=== PATIENT | male | born 1950 | race Caucasian/White ===

== ENCOUNTER 2019-07-07 00:56 | Observation (INO) | payer MEDICARE, OTHER, SELFPAY ==
[2019-07-07] VITALS (9 sets, daily range): BP systolic 116–140; BP diastolic 70–82; PULSE 70–102; RESP 13–17; TEMP 36.8–37.3; O2SAT 94–98; BMI 24.7
--- NOTE | ~2019-07-07 | CT_ITS ---
EXAMINATION: CT brain wo con DATE: 07/07/2019 01:29 INDICATION: Seizure. TECHNIQUE: Computed tomography (CT) of the head was performed without intravenous contrast. The mA wa s adjusted according to patient size. Iterative reconstruction technique was employed. The dose-lengt h product was 605.33 mGy-cm. COMPARISON: Head CT 01/15/2016 FINDINGS: There is no intracranial hemorrhage, acute infarction, or abnormal intracranial mass lesion . There is no intracranial hemorrhage, acute infarction, or abnormal intracranial mass lesion. The v entricles are normal in size. The paranasal sinuses are clear. There is a small left mastoid effusion . The orbits are normal. IMPRESSION: 1. Normal brain. Reviewed, dictated and finalized at location A. IMPRESSION: 1. Normal brain.
--- NOTE | ~2019-07-07 | XR_ITS ---
EXAMINATION: XR chest 1V portable DATE: 07/07/2019 01:33 INDICATION: Seizure. TECHNIQUE: A single frontal view of the chest was obtained. COMPARISON: Chest single view 01/15/2016, CT abdomen 04/18/2016 FINDINGS: There is a staple line in right middle lobe. There is mild atelectasis in right lower lung zone. No pleural effusion or pneumothorax. The heart size is normal. Surgical clips in the right uppe r quadrant are likely from cholecystectomy. IMPRESSION: 1. Mild atelectasis in right lower lung zone. Reviewed, dictated and finalized at location A.
--- NOTE | 2019-07-07 01:13 | ECG_ITS ---
Measurements Intervals [place] Rate: 102 P: 24 PA: 193 QRS: -35 QRSD: 108 T: 42 QT: 368 QTc: 480 Interpretive Statements SINUS TACHYCARDIA POSSIBLE LEFT ATRIAL ENLARGEMENT LEFT AXIS DEVIATION POSSIBLE LEFT VENTRICULAR HYPERTROPHY BORDERLINE ECG Electronically Signed On 07-07-2019 7:12:57 CDT by Jarad Goins D.O.
[2019-07-07 01:44] LABS: Glucose Point of Care 209 (65-105)
[2019-07-07 01:53] LABS: Basophils Percent Auto 0.3 % (0.2-1.2); Eosinophils Percent Auto 0.1 % (0-4.4); Hematocrit 42.8 % (42.0-52.0); Hemoglobin 14.8 g/dL (14.0-18.0); Immature Granulocyte Absolute 0.02 K/mm3 (0.00-0.031); Immature Granulocyte Percent A 0.2 % (0-0.5); Lymphocytes Absolute Auto 3.71 K/mm3 (0.9-3.2); Mean Corpuscular HGB Conc 34.6 g/dl (32-36); Mean Corpuscular Hemoglobin 33.8 pg (26-34); Mean Corpuscular Volume 97.7 fl (80-100); Monocytes Absolute Auto 0.6 K/mm3 (0.1-0.6); Monocytes Percent Auto 6.4 % (2.6-8.5); Neutrophils Absolute Auto 4.7 K/mm3 (1.3-6.7); Platelet Count Result 189 k/mm3 (150-375); Red Blood Count 4.38 M/mm3 (4.6-6.20); Red Cell Distribution Width 12.8 % (11.5-14.5); White Blood Count 9.1 K/mm3 (4.5-10.0)
[2019-07-07 02:02] LABS: Albumin Level 4.5 g/dL (3.5-5.1); Alkaline Phosphatase 128 U/L (38-126); Aspartate Amino Transferase 29 U/L (17-59); Bilirubin,Total 1.4 mg/dL (0.2-1.3); Blood Urea Nitrogen 17 mg/dL (9-20); Carbon Dioxide 19 mmol/L (22-30); Chloride 103 mmol/L (98-107); Estimated CRCL calculation 56 ml/min; Estimated Glomerular Filt Rate > 60; Glucose 182 mg/dL (75-110); Sodium 135 mmol/L (137-145)
[2019-07-07 02:13] LABS: Alanine Aminotransferase 22 U/L (4-50)
--- NOTE | 2019-07-07 02:26 | ED.SEIZURE ---
HPI - Seizure General Chief Complaint: Seizure Stated Complaint: seizure?? Time Seen by Provider: 07/07/19 02:03 Source: patient and family () Mode of arrival: EMS History of Present Illness HPI Narrative: This patient is a 69 year old male with h/o seizure disorder who presents for an evaluation of possible seizure. Patient's states patient woke her up when he seemed to sit up in bed, and he started thrashing. This episode lasted a couple of minutes, and then she states he became unresponsive. She states was breathing but it sounded like snoring so she started CPR. She states patient regained consciousness within 1-2 minutes. Patient was diagnosed with seizures 3 years ago but his states she has never witness a seizure prior to this. He takes keppra 250 mg BID, and states he takes this medication daily as prescribed. He has no complaints other than tongue pain. He states he bit his tongue. He denies headache, dizziness, chest pain, shortness of breath, nausea or vomiting. complaint: seizure Onset (ago): minute(s) Description of Episode: tonic-clonic movement and post-event confusion Witnessed: Yes - by Other () Related Data Home Medications Medication Instructions Recorded Confirmed amlodipine 10 mg PO DAILY 07/07/19 07/07/19 levetiracetam [Keppra] 250 mg PO BID 07/07/19 07/07/19 lovastatin 20 mg PO DAILY 07/07/19 07/07/19 Allergies Allergy/AdvReac Type Severity Reaction Status Date / Time No Known Allergies Allergy Verified 07/07/19 01:05 Review of Systems Review of Systems: All systems reviewed & are unremarkable except as noted in HPI and below Constitutional: Constitutional: Denies chills, Denies fever(s) and Denies weakness Eyes: Eyes: Reports no additional eye complaints ENT: Denies dysphagia, Denies epistaxis and Denies nasal congestion Cardiovascular: Cardiovascular: Denies chest pain Respiratory: Respiratory: Denies cough and Denies dyspnea Gastrointestinal: Gastrointestinal: Denies diarrhea, Denies nausea and Denies vomiting Neurologic: Denies headache(s), Denies focal weakness, Denies numbness and Denies weakness PMFSH Past Medical History Medical History Carcinoid tumor Hypertension Seizure disorder Surgical History Surgical History Hx of cholecystectomy Family History Family History Father Cancer Social History Social History Smoking packs per day: 1 Smoking cigarettes per day: 20.0 Years smoked: 8 Smoking pack-years: 8.00 Smoking status: Former smoker Tobacco type: cigarettes Alcohol intake: never Substance use: never Substance use type: does not use Gender identity (if verbalized by the patient): Male Spiritual care concerns: No Exam Narrative: Exam Narrative: GENERAL: Well-appearing, well-nourished, and in no acute distress. HEAD: Normocephalic, atraumatic EYES: PERRLA and EOMI, conjunctiva clear without discharge THROAT:Mucous membranes moist, Oropharynx normal without erythema, exudate, peritonsillar swelling or fluctuance, right tongue contusion laterally no bleeding NECK: Supple, without lymphadenopathy or mass RESPIRATORY: No respiratory distress, Airway patent, Respirations non-labored, Clear to auscultation without rales, rhonchi or wheeze HEART: Regular rate and rhythm. No murmur heard. Normal peripheral pulses. ABDOMEN: Soft, nontender, nondistended, normal active bowel sounds. No masses. No rebound or guarding, No organomegaly. EXTREMITIES: No edema, normal strength with full range of motion. SKIN: Warm, dry, normal color without rash NEURO: Alert and oriented to person, place, unable to state month, year or president. CN 2-12 grossly intact. No focal deficits. PSYCH: Normal mood and af
[2019-07-07 02:39] LABS: Add Urine Microscopic? YES; Amphetamine Screen Urine Negative (Negative); Appearance Urine Clear (Clear); Barbiturate Screen Urine Negative (Negative); Benzodiazepines Screen Urine Negative (Negative); Bilirubin Urine Negative (Negative); Blood Urine Negative (Negative); Cannabinoid Screen Urine Negative (Negative); Cocaine Screen Urine Negative (Negative); Color Urine Yellow (Yellow); Glucose Urine UA Negative (Negative); Ketones Urine Trace mg/dL (Negative); Leukocyte Esterase Ur Negative LEU/UL (Negative); Methadone Screen Urine Negative (Negative); Mucus Urine Rare /lpf; Nitrate Urine Negative (Negative); Opiate Screen Urine Negative (Negative); Phencyclidine Screen Urine Negative (Negative); Protein Urine 2+ mg/dL (Negative); RBC Urine 0-2 /hpf (0-2); Specific Grav Ur 1.021 (1.001-1.035); Urobilinogen Urine Negative mg/dL (<2.0); WBC Urine 0-3 /hpf
[2019-07-07] MEDS: levETIRAcetam 1000MG/NACL100ML 1,000 MG/100 ML BAG 400 MG IVPB (03:13)
--- NOTE | 2019-07-07 04:37 | PM.IMHP ---
H&P: HPI History of Present Illness Chief complaint: seizure Narrative: This is a 69 year old w/ history of HTN and seizure disorder who presented to the hospital for evaluation for a possible seizure. Tonight the patient's woke up because her was shaking next to her. She turned on the lights and observed her shaking and noticed he was bleeding from his mouth. The whole episode only lasted a few minutes and his immediately called 911. She was instructed to start CPR as the patient did not appear to be breathing well. He quickly regained consciousness within 1 minute. The patient denies any loss of urine. On arrival to the ER the patient was initially post ictal and confused. Routine labs were obtained which were unremarkable. CT brain was obtained and was also unremarkable. He was loaded w/ IV keppar in the ER. On my encounter with the patient he denies any headache, fever, chills, cough, sore throat, chest pain, abdominal pain, dysuria, hematuria, blurry vision, double vision, diarrhea, rectal bleeding, slurred speech, shortness of breath, dizziness, focal weakness, numbness or tingling. Review of Systems Review of Systems: All systems reviewed & are unremarkable except as noted in HPI and below PMFSH Past Medical History Medical History Carcinoid tumor Hypertension Seizure disorder Surgical History Surgical History Hx of cholecystectomy Family History Family History Father Cancer Social History Social History Smoking packs per day: 1 Smoking cigarettes per day: 20.0 Years smoked: 8 Smoking pack-years: 8.00 Smoking status: Former smoker Tobacco type: cigarettes Alcohol intake: never Substance use: never Substance use type: does not use Gender identity (if verbalized by the patient): Male Spiritual care concerns: No Meds Home Medications and Allergies Home Medications Medication Instructions Recorded Confirmed Type amlodipine 10 mg PO DAILY 07/07/19 History levetiracetam [Keppra] 250 mg PO BID 07/07/19 History lovastatin 20 mg PO DAILY 07/07/19 History Allergies Allergy/AdvReac Type Severity Reaction Status Date / Time No Known Allergies Allergy Verified 07/07/19 01:05 Vital Signs Vital Signs - 24 hr 07/07/19 00:54 07/07/19 01:01 07/07/19 01:44 Temperature 36.8 C Pulse Rate 102 H 96 Respiratory Rate 15 Blood Pressure 116/75 Pulse Oximetry 95 96 07/07/19 02:14 07/07/19 03:44 Temperature Pulse Rate 87 72 Respiratory Rate 17 13 Blood Pressure 126/78 140/82 Pulse Oximetry 94 98 Exam Const: General: cooperative, no acute distress, alert and awake Nutritional Appearance: well nourished Orientation/consciousness: patient oriented x3 HENMT: Head: normal to inspection General nose exam: Normal external nose present Face and sinus: normal facial exam Mouth: No tongue normal (laceration of right side of tongue++ ) Eyes: Pupils: Equal, round and reactive pupils present EOM: EOMs intact bilaterally Neck: Neck: supple and no JVD Thyroid: thyroid normal Lymphatic: lymphadenopathy not noted Resp: Effort & Inspection: normal respiratory effort Auscultation: clear to auscultation bilaterally Cardio: Rate: regular rate Rhythm: regular rhythm Heart sounds: no murmurs GI: Inspection: normal to inspection Auscultation: normal bowel sounds Skin: General skin exam: normal color and no rashes or lesions noted Neuro: General: patient oriented x3 Cranial nerves: Yes CN's II-XII intact bilaterally and Yes Equal, round and reactive pupils present Speech: normal speech Motor exam (neuro): 5/5 motor strength present throughout Sensory Exam: normal sensation Extrem: General: normal to inspection and
--- NOTE | 2019-07-07 05:22 | ADMGEN ---
This patient, Mando Pacheco, was admitted to Medical Room 344-01. Patient/family oriented to hospital policies and general routines including ID bracelet, bed and alarms, visiting hours, pain management, procedures, bathroom and other care routines, personal items, smoking policy, room service/diet, and visiting hours. Valuables list has been completed. Information on how to activate the Rapid Response Team has been discussed. Patient/Family are encouraged to report perceived risks to care and to ask questions if they do not understand what they are told or what they should do.
[2019-07-07 06:54] LABS: Thyroid Stimulating Hormone Reflex 0.734 uIU/mL (0.465-4.68)
[2019-07-07] MEDS: AMLODIPINE BESYLATE 5 MG TABLET 10 MG PO (10:51)
[2019-07-07] MEDS: LOVASTATIN 20 MG TABLET PO (10:51)
--- NOTE | 2019-07-07 14:51 | CONS_ITS ---
DATE OF CONSULTATION: 07/07/2019 HISTORY OF PRESENT ILLNESS: A 69-year-old male has been admitted to [facility] for the complaint of seizure for which he presented to the hospital emergency room. Reportedly, the patient's woke up because her was shaking next to her. She turned on the light and observed her shaking and noted he was bleeding from his mouth as well. The whole episode lasted only for few minutes. She immediately called 911 and was instructed to start CPR as the patient did not appear to be breathing. He quickly regained consciousness within 1 minute, denied any loss of urine. On arrival in the emergency room, he was initially postictal and confused. Routine labs were done, which were unremarkable. CT of the brain revealed no evidence of bleed. He was loaded with the IV Keppra in the emergency room and subsequently it was mentioned that he had no history of any other generalized symptomatology. The patient carries the diagnosis of in the past, carcinoid tumor, hypertension, and seizure disorder in addition to history of cholecystectomy. SOCIAL HISTORY: He has 8 years smoking pack years. In addition, he at present is former smoker, and does not drink alcohol. MEDICATIONS: He has been takin. Amlodipine 10 mg daily. 2. Keppra 250 mg twice a day. 3. Lovastatin 20 mg daily. ALLERGIES: HE IS NOT ALLERGIC TO ANY MEDICATION. PHYSICAL EXAMINATION: VITAL SIGNS: Evaluation up until now revealed him to be afebrile with pulse of 102, respirations 15, blood pressure 116/75. GENERAL: General physical examination revealed him to be awake, alert, cooperative, in no obvious acute distress. HEENT: Head normocephalic with no cranial bruits. Ear, nose, throat examination normal with laceration on the right side of the tongue noted. NECK: Supple with no cervical bruits. No thyromegaly. No lymphadenopathy. HEART: Regular with no murmur. LUNGS: Clear to auscultation. ABDOMEN: Soft with no organomegaly. NEUROLOGICAL: He is awake, alert, cooperative. Pupils round, regular. Welch of vision full. Extraocular movements full. Face symmetrical. Tongue midline. Motor examination revealed no drift of one side or other side. Reflexes symmetrical. Plantars downgoing. LABORATORY DATA: Evaluation up until now revealed CBC with WBC 9.1, hemoglobin 14.8, and platelet count of 189. Basic metabolic panel is normal except the sodium was 135 and glucose is 182. Total bilirubin is 1.4 with AST 29, ALT 22, alkaline phos 128, and albumin 4.5. UA is negative except 2+ protein. The patient has been admitted to the hospital for the diagnosis of the seizure disorder, which is obvious from the history. At present, he is taking Keppra 250 mg twice a day, which will be increased further to 500 twice a day. In addition, we will obtain the EEG and also MRI of the brain. FLOWER JONES M.D. SHOE COVERER SHOE COVERER D I MT: [place]
--- NOTE | 2019-07-08 08:19 | PM.DS ---
DS: Diagnosis Admitting Diagnosis Admitting Diagnosis: Unspecified convulsions Discharge Diagnosis (1) Seizure: Code(s): R56.9 - Unspecified convulsions Status: Acute Assessment and Plan: Increase Keppra to 500 mg BID and follow up with neurologist Dr. Rivers in 2 months. (2) Hypertension: Qualifiers: Hypertension type: unspecified Qualified Code(s): I10 - Essential (primary) hypertension Code(s): I10 - Essential (primary) hypertension Status: Acute Assessment and Plan: Blood pressures remained stable on lovastatin and amlodipine. DS: Summary Hospital Course Reason for hospitalization: Seizure Hospital Course: Date of admission: 07/07/2019 Date of discharge: 07/07/2019 Mr. Pacheco is a 69-year-old male with history of seizure disorder and hypertension presented to the emergency department on 07/07/2019 for evaluation of possible seizure. The patient's reports she awoke in the middle of the night to see the patient thrashing for a couple of minutes, after which he became unresponsive. He then regained consciousness within 1-2 minutes. At presentation, he displayed post-ictal confusion which slowly improved. At presentation, vitals were stable, CBC wnl, Na 135, K 4.0, Cl 103, CO2 19, BUN 17, Cr 1.1, glucose 182, urinalysis clear, and head CT revealing normal brain without evidence of hemorrhage, infarct, or mass lesion. He was admitted to the hospitalist service under observation for confusion and to be evaluated by neurologist in consultation. He was loaded with IV Keppra in the ED and at recommendation of neurologist was transitioned to 500 mg BID PO Keppra, increased from home dose of 250 mg BID. His confusion resolved entirely and he was alert and oriented x4. He did bite his tongue during the event which was painful to him but he was able to tolerate oral intake. There was no evidence of bleeding from tongue at my evaluation, and I suspect this will heal quickly. Patient was anxious for discharge, and given his improvement in confusion he was felt to be stable for discharge. The patient has a follow up appointment with Dr. Rivers scheduled in August. He was educated on his medication changes increasing his dose of Keppra and the importance of compliance with this medication. We discussed that he should avoid driving or operating machinery for 6-8 weeks. We also discussed importance of attending follow up appointment with neurologist and being seen by PCP. We discussed worrisome signs and symptoms for which he should seek medical care. All of his questions were answered. He was discharged home in hemodynamically stable condition on the afternoon of 07/07/2019 and was picked up from the hospital by his . Status at Discharge Functional status at discharge: independent ambulation Overall status at discharge: patient is back to baseline Time Spent with Patient Time attestation: Total time spent providing and/or coordinating discharge services:38 minutes Time spent: Greater than 30 minutes Exam Narrative: Exam Narrative: Mr. Pacheco is examined alone today. He is a well nourished 69 year old male who is lying supine in bed. He appears comfortable and is in NARD. At discharge, HR 70, BP 137/70, RR 17, T 99.1. Neuro: awake, alert and oriented x4, speech clear, no focal neuro deficits noted, strength 5/5 throughout, full sensation HEENMT: normocephalic, atraumatic, EOMI, PERRL, sclerae anicteric, moist oral mucosa, linear lesion on right lateral aspect of tongue without evidence of bleeding, normal oropharynx Neck: supple, no lymphadenopathy Respiratory: clear to auscultation bilaterally, normal respiratory effort without accessory muscle use, 97% on room air Cardio: regular rate, regular rhythm, normal S1 and S2 Abdomen: normal to inspection, nondistended, normoactive bowel sounds, soft, nontender to palpation Extremities: BLE wtihout edema, erythema, or pain to palpation, dorsal pe
== END 2019-07-07 13:29 | disposition home or self-care (01) ==
LOC: ANHED 03:37 → ANH3MED 07:32
PROVIDERS: Admitting Provider Family Medicine; Emergency Provider General Practice; PCP Family Medicine; Visit Provider Physician Assistant
DX: G40.909 Epilepsy, unspecified, not intractable, without status epilepticus (principal); I10 Essential (primary) hypertension; Z87.891 Personal history of nicotine dependence
CPT/HCPCS: 36415; 70450; 71045; 80053; 80307; 81001; 82948; 83735; 84443; 85025; 93005; 96374; 99285; A9270; G0378; J1953

== ENCOUNTER 2019-07-29 08:33 | Outpatient (CLI) | payer MEDICARE, OTHER, SELFPAY ==
--- NOTE | ~2019-07-29 | XR_ITS ---
XR abdomen/kub 1V DATE: 07/29/2019 08:53 INDICATION: Kidney calculus. History of ESWL of right kidney TECHNIQUE: AP projection, 2 views COMPARISON: 07/08/2018 KUB 04/18/2016 CT abdomen with IV contrast material FINDINGS: Surgical clips, right upper quadrant, consistent with cholecystectomy. Radial opaque bowel sutures overlie the right mid to lower abdomen. Stable calcifications overlying the lateral lower aspect of the left kidney since 07/08/2018, document ed calcifications within the kidney on 04/18/2016 CT abdomen pelvis examination. Prior calcifications overlying the right kidney on the 07/08/2018 KUB are not longer evident, the largest of which measured at least 3 mm approximate maximal dimension. There is some calcification or possibly suture material overlying the right paraspinal area at the lower L3 level, also present on 07/08/2018, not apparently related to any urinary tract calcification. IMPRESSION: Resolution of right nephrolithiasis since 07/08/2018 Stable lower pole left renal calcifications Postoperative change of right upper and lower quadrants Reviewed, dictated and finalized at Location A. Reviewed, dictated and finalized at location A.
== END 2019-07-29 08:34 | disposition home or self-care (01) ==
PROVIDERS: PCP Family Medicine; Visit Provider Urology
DX: N20.0 Calculus of kidney (principal); Z98.890 Other specified postprocedural states
CPT/HCPCS: 74018

== ENCOUNTER 2020-05-11 12:46 | Outpatient (CLI) | payer MEDICARE, SELFPAY ==
--- NOTE | ~2020-05-11 | CT_ITS ---
EXAMINATION: CT chest abdomen pelvis w con DATE: 05/11/2020 13:18 INDICATION: Neuroendocrine carcinoma of small bowel. TECHNIQUE: Computed tomography (CT) of the chest, abdomen, and pelvis was performed with 100 mL Omnip aque 350 intravenous contrast. Automated exposure control and iterative reconstruction technique were employed. The dose-length product was 563.79 mGy-cm. COMPARISON: CT abdomen 04/18/2016 FINDINGS: CHEST CT: There are changes of wedge resection in right lung. There is minimal atelectasis bilaterally. No pleu ral effusion. The heart size is normal. No pericardial effusion. There is ectasia of ascending aorta measuring 4.5 cm. There is moderate thoracic spondylosis. ABDOMEN/PELVIS CT: There are multiple cysts in the liver measuring up to 3.9 cm. There are multiple masses in the liver, consistent with metastatic disease. For example, a 4.9 x 4.8 cm mass in right hepatic lobe previousl y measured 1.8 cm. A 4.9 x 3.2 cm mass in right hepatic lobe previously measured 2.3 cm. There are ch anges of cholecystectomy. The spleen, pancreas, and adrenal glands are normal. There is cortical thin gabrielle of the kidneys. There is a parenchymal calcification in left kidney. There is a 7 mm cyst in rig ht kidney. The prostate is moderately enlarged. There are no dilated loops of bowel. There is an anas tomosis in the ileum. There are no pathologically enlarged lymph nodes. There is a left inguinal alia ia containing fat. There is mild lumbar spondylosis. IMPRESSION: 1. Liver masses with worsening from 04/18/2016, consistent metastatic disease. Reviewed, dictated and finalized at location A.
[2020-05-11 13:13] LABS: Estimated Glomerular Filt Rate 60
== END 2020-05-11 12:47 | disposition home or self-care (01) ==
PROVIDERS: PCP Family Medicine; Visit Provider Internal Medicine Medical Oncology
DX: C7A.8 Other malignant neuroendocrine tumors (principal); C7B.8 Other secondary neuroendocrine tumors; D3A.098 Benign carcinoid tumors of other sites
CPT/HCPCS: 71260; 74177; Q9967

== ENCOUNTER 2020-07-25 08:38 | Outpatient (CLI) | payer MEDICARE, SELFPAY ==
--- NOTE | ~2020-07-25 | XR_ITS ---
EXAMINATION: XR abdomen/kub 1V DATE: 07/25/2020 08:57 INDICATION: Calculus of kidney. TECHNIQUE: A supine view of the abdomen on 2 radiographs was obtained. COMPARISON: CT abdomen and pelvis 05/11/2020 FINDINGS: There is a 6 mm calcification or pair of calcifications in left kidney. There is a phleboli th in left pelvis. New hyperdense material in the liver may be changes of chemoembolization. Surgical clips in the right upper quadrant are likely from cholecystectomy. IMPRESSION: 1. 6 mm calcification or pair of calcifications in left kidney that may be parenchymal or in a calyce al diverticulum. Reviewed, dictated and finalized at location A. IMPRESSION: 1. 6 mm calcification or pair of calcifications in left kidney that may be pare nchymal or in a calyceal diverticulum.
== END 2020-07-25 08:39 | disposition home or self-care (01) ==
LOC: ANHIMG 08:45
PROVIDERS: PCP Family Medicine; Visit Provider Urology
DX: N20.0 Calculus of kidney (principal)
CPT/HCPCS: 74018

== ENCOUNTER 2020-11-08 15:30 | Outpatient (CLI) | payer MEDICARE, SELFPAY ==
--- NOTE | ~2020-11-08 | MR_ITS ---
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 The mass demonstrates lacelike reticular internal enhancement. There is a 4.1 x 3.9 cm mass in liver segment V which previously measured 4.9 cm and also demonstrates lacelike reticular internal enhancement. A 2.6 x 2.0 cm mass located more medially at the junctions of liver segment V and is unchanged in size. No enlarging liver mass is identified. The lung bases are clear. There are no pat hologically enlarged abdominal lymph nodes. The spleen, pancreas, and adrenal glands are normal. The gallbladder is surgically absent. Cysts of the kidneys measure up to 7 mm on the right. There are no dilated loops of bowel. IMPRESSION: 1. Metastases in the right hepatic lobe with interval decrease in size status post TACE. Reviewed, dictated and finalized at location A. IMPRESSION: 1. Metastases in the right hepatic lobe with interval decrease in size status p ost TACE.
[2020-11-09 14:45] LABS: Estimated Glomerular Filt Rate > 60
== END 2020-11-08 15:31 | disposition home or self-care (01) ==
LOC: ANHIMG 15:31
PROVIDERS: PCP Family Medicine; Visit Provider Internal Medicine Medical Oncology
DX: C7B.8 Other secondary neuroendocrine tumors (principal); D3A.098 Benign carcinoid tumors of other sites
CPT/HCPCS: 36415; 74183; 82565; A9577

== ENCOUNTER 2021-01-31 13:05 | Outpatient (CLI) | payer MEDICARE, SELFPAY ==
--- NOTE | ~2021-01-31 | MR_ITS ---
EXAMINATION: MR abdomen wo/w con INDICATION: Neuroendocrine carcinoma of small bowel TECHNIQUE: Coronal SSFSE ARC, WATER:coronal LAVA-FLEX, Coronal 2D FIESTA FatSat, Axial SSFSE BH ARC, Axial 3D DualEcho BH, Axial SSFSE-IR, Axial DWI b=500, Axial 2D FIESTA FatSat, pre and dynamic postco ntrast Axial LAVA ARC, postcontrast Coronal In and Opposed phase LAVA FLEX COMPARISON: 11/08/2020 CONTRAST: Multihance, 15 cc FINDINGS: A 4.4 cm mass at the junction of liver segments V and previously measured 4.8 cm. The ma ss again demonstrates lacelike reticular internal enhancement. A 3.3 cm mass of liver segment V with lacelike internal enhancement previously measured up to 4.1 cm. Multiple additional liver masses are identified which are stable. No new liver mass is identified. The spleen, pancreas, and adrenal gland s are normal. The gallbladder is surgically absent. There are no pathologically enlarged abdominal ly mph nodes. Again noted are cysts of the kidneys which measure up to 7 mm on the right. There is a 5 m m hemorrhagic cyst of the right kidney upper pole. No dilated loops of bowel are evident. IMPRESSION: 1. Multiple liver metastasis, some with interval decrease in size, consistent with treatment response . Reviewed, dictated and finalized at location A. RIOR DESIGNER IMPRESSION: 1. Multiple liver metastasis, some with interval decrease in size, consistent w ith treatment response.
[2021-01-31 13:38] LABS: Estimated Glomerular Filt Rate > 60
== END 2021-01-31 13:06 | disposition home or self-care (01) ==
LOC: ANHIMG 13:07
PROVIDERS: PCP Family Medicine; Visit Provider Internal Medicine Medical Oncology
DX: C7A.8 Other malignant neuroendocrine tumors (principal); C7B.8 Other secondary neuroendocrine tumors; C78.7 Secondary malignant neoplasm of liver and intrahepatic bile duct
CPT/HCPCS: 74183; A9577

== ENCOUNTER 2021-04-07 02:20 | Emergency (ER) | payer MEDICARE, OTHER, SELFPAY ==
--- NOTE | ~2021-04-07 | XR_ITS ---
EXAMINATION: XR chest 2V DATE: 04/07/2021 02:50 INDICATION: Transient alteration of awareness TECHNIQUE: AP and lateral views of the chest are obtained. COMPARISON: 07/07/2019 FINDINGS: The lungs are free of acute opacities. Surgical changes are noted in the right lung base. T here is no pleural effusion or pneumothorax. The cardiomediastinal silhouette is normal. There is mod erate thoracic spondylosis. IMPRESSION: 1. No acute cardiopulmonary abnormality. Reviewed, dictated and finalized at location A. T ORGANIZER
--- NOTE | ~2021-04-07 | CT_ITS ---
EXAMINATION: CT brain wo con INDICATION: Transient alteration of awareness, confusion COMPARISON: 07/07/2019 TECHNIQUE: Standard unenhanced head CT. The dose-length product (DLP) was 605.33 mGy-cm. The mA was a djusted according to patient size. Iterative reconstruction technique was employed. FINDINGS: There is no acute intraparenchymal hemorrhage. No evidence of mass lesion. No evidence of a cute infarction. There is mild periventricular and subcortical hypodensity probably related to small vessel ischemic disease. There is mild prominence of the sulci and ventricles related to cerebral atr ophy. Intracranial calcified cerebral atherosclerosis is noted. There are no extra-axial collections. There is no mass effect or midline shift. The orbits and soft tissues are unremarkable. The visualiz ed sinuses and mastoid air cells are well aerated. IMPRESSION: 1. No acute intracranial abnormality. 2. Age related findings. Reviewed, dictated and finalized at location A. TLE FINAL INSPECTOR
[2021-04-07 02:23] VITALS: BP 131/70; PULSE 107; RESP 16; TEMP 36.9; O2SAT 99
--- NOTE | 2021-04-07 02:36 | ECG_ITS ---
Measurements Intervals [place] Rate: 88 P: 24 NE: 200 QRS: -37 QRSD: 104 T: 45 QT: 382 QTc: 464 Interpretive Statements SINUS RHYTHM LEFT AXIS DEVIATION POSSIBLE LEFT ATRIAL ENLARGEMENT POSSIBLE LEFT VENTRICULAR HYPERTROPHY BORDERLINE R WAVE PROGRESSION, ANTERIOR LEADS MINIMAL Q WAVES- HIGH LATERAL LEADS BORDERLINE ECG Electronically Signed On 04-07-2021 6:39:32 PLANT WRAPPER by Jarad Goins D.O.
--- NOTE | 2021-04-07 02:46 | PC.NURSE ---
Patient to CT at this time. Stable.
[2021-04-07 03:00] VITALS: PULSE 89
[2021-04-07 03:02] LABS: Basophils Percent Auto 0.2 % (0.2-1.2); Eosinophils Absolute Auto 0.1 K/mm3 (0-0.3); Eosinophils Percent Auto 1.2 % (0-4.4); Hematocrit 42.9 % (42.0-52.0); Hemoglobin 14.8 g/dL (14.0-18.0); Immature Granulocyte Absolute 0.03 K/mm3 (0.00-0.031); Immature Granulocyte Percent A 0.4 % (0-0.5); Lymphocytes Absolute Auto 3.61 K/mm3 (0.9-3.2); Lymphocytes Percent Auto 42.4 % (18.3-44.2); Mean Corpuscular HGB Conc 34.5 g/dl (32-36); Mean Corpuscular Hemoglobin 34.7 pg (26-34); Mean Corpuscular Volume 100.5 fl (80-100); Mean Platelet Volume 10.5 fl (7.4-10.4); Monocytes Absolute Auto 0.7 K/mm3 (0.1-0.6); Monocytes Percent Auto 8.5 % (2.6-8.5); Neutrophils Percent Auto 47.3 % (45.5-73.1); Platelet Count Result 168 k/mm3 (150-375); Red Blood Count 4.27 M/mm3 (4.6-6.20); Red Cell Distribution Width 12.5 % (11.5-14.5); White Blood Count 8.5 K/mm3 (4.5-10.0)
[2021-04-07 03:17] LABS: Alanine Aminotransferase 22 U/L (4-50); Albumin Level 4.2 g/dL (3.5-5.1); Alkaline Phosphatase 184 U/L (38-126); Anion Gap 17 mmol/L (8-16); Aspartate Amino Transferase 34 U/L (17-59); Bilirubin,Total 0.8 mg/dL (0.2-1.3); Blood Urea Nitrogen 13 mg/dL (9-20); Calcium 8.6 mg/dL (8.4-10.2); Carbon Dioxide 18 mmol/L (22-30); Chloride 100 mmol/L (98-107); Estimated CRCL calculation 67 ml/min; Estimated Glomerular Filt Rate > 60; Glucose 171 mg/dL (65-110); Potassium 3.6 mmol/L (3.4-5.0); Sodium 135 mmol/L (137-145)
--- NOTE | 2021-04-07 04:18 | ED.SEIZURE ---
HPI - Seizure General Chief Complaint: Seizure Stated Complaint: SEIZURE Time Seen by Provider: 04/07/21 02:21 History of Present Illness HPI Narrative: Patient is a 70-year-old male who presents ER with seizure. Patient has history of seizure disorder. reports he is compliant with his home medication and he did take it today. 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 Recent PET scan showed no metastases, specifically to the brain. Patient had tonic-clonic activity in bed and patient's called EMS. Patient is alert and oriented x1. Patient did not fall out of bed or injure himself according to . Seizure History: Yes Related Data Home Medications Medication Instructions Recorded Confirmed amlodipine 10 mg PO DAILY 04/07/21 aspirin [Adult Aspirin EC Low 81 mg PO DAILY 04/07/21 Strength] cholecalciferol (vitamin D3) 50 mcg PO DAILY 04/07/21 [Vitamin D3] cyanocobalamin (vitamin B-12) 1,000 mcg PO DAILY 04/07/21 [Vitamin B-12] levetiracetam [Keppra] 500 mg PO BID 04/07/21 lovastatin 20 mg PO DAILY 04/07/21 magnesium 500 mg PO DAILY 04/07/21 Allergies Allergy/AdvReac Type Severity Reaction Status Date / Time No Known Allergies Allergy Verified 04/07/21 02:54 Review of Systems Review of Systems: ROS unobtainable: Yes unobtainable due to mental status PMFSH Past Medical History Medical History (Updated 04/07/21 @ 04:37 by Mark Matthew MD) Carcinoid tumor Hyperlipidemia Hypertension Seizure disorder Social History Social History (Updated 04/07/21 @ 02:59 by Mark Weber, EDGARDO) Alcohol intake: current Alcohol use details: Occasional use Substance use: never Exam Narrative: GENERAL: Well-appearing, well-nourished, and in no acute distress. HEAD: Normocephalic, atraumatic. EYES: PERRL and EOMI. ENT: Mucous membranes moist. NECK: Supple. CHEST: Clear to auscultation. No respiratory distress. HEART: Regular rate and rhythm. Normal peripheral pulses. ABDOMEN: Soft, nontender, nondistended. EXTREMITIES: Normal range of motion. No edema. SKIN: Warm, dry, no rash. NEURO: No focal deficits. Alert and oriented x1. PSYCH: Normal mood and affect. Course Course Emergency Course: Patient resting comfortably. Alert and oriented x3 and at neurologic baseline. Discussed results with him and his . Discharge home. Discussed he should not operate a motor vehicle for 6 months until cleared by neurology. We will not make modifications to his medication at this time but suggest he contact his neurologist in the morning. Vital Signs Vital signs: Vital Signs Temperature 98.5 F 04/07/21 02:23 Pulse Rate 107 H 04/07/21 02:23 Respiratory Rate 16 04/07/21 02:23 Blood Pressure 131/70 04/07/21 02:23 Pulse Oximetry 99 04/07/21 02:23 Temperature 98.5 F 04/07/21 02:23 Pulse Rate 89 04/07/21 03:00 Respiratory Rate 16 04/07/21 02:23 Blood Pressure 131/70 04/07/21 02:23 Pulse Oximetry 99 04/07/21 02:23 MDM - Seizure Lab Data Result diagrams: 04/07/21 02:43 04/07/21 02:43 Labs: Lab Results 04/07/21 04/07/21 Range/Units 02:43 02:43 WBC 8.5 (4.5-10.0) K/mm3 RBC 4.27 L (4.6-6.20) M/mm3 Hgb 14.8 (14.0-18.0) g/dL Hct 42.9 (42.0-52.0) % MCV 100.5 H (80-100) fl MCH 34.7 H (26-34) pg MCHC 34.5 (32-36) g/dl RDW 12.5 (11.5-14.5) % Plt Count 168 (150-375) k/mm3 MPV 10.5 H (7.4-10.4) fl Immature Gran % (Auto) 0.4 (0-0.5) % Neut % (Auto) 47.3 (45.5-73.1) % Lymph % (Auto) 42.4 (18.3-44.2) % Tift % (Auto) 8.5 (2.6-8.5) % Eos % (Auto) 1.2 (0-4.4) % Baso % (Auto) 0.2 (0.2-1.2) % Lymph # (Auto) 3.61 H (0.9-3.2) K/mm3 Tift # (Auto) 0.7 H (0.1-0.6) K/mm3 Eos # (Auto) 0.1 (0-0.3) K/mm3 Baso # (Auto) 0.0 (0.0-0.1) K/mm3 Abs Immat
[2021-04-07 04:43] VITALS: BP 119/71; PULSE 75; RESP 16; O2SAT 99
== END 2021-04-07 04:53 | disposition home or self-care (01) ==
PROVIDERS: Emergency Provider Emergency Medicine; PCP Family Medicine
DX: G40.909 Epilepsy, unspecified, not intractable, without status epilepticus (principal); E78.5 Hyperlipidemia, unspecified; I10 Essential (primary) hypertension; Z79.82 Long term (current) use of aspirin; R94.31 Abnormal electrocardiogram [ECG] [EKG]
CPT/HCPCS: 36415; 70450; 71046; 80053; 85025; 93005; 99284

== ENCOUNTER 2021-04-27 12:41 | Outpatient (CLI) | payer MEDICARE, SELFPAY ==
--- NOTE | ~2021-04-27 | MR_ITS ---
EXAMINATION: MR abdomen wo/w con DATE: 04/27/2021 14:04 INDICATION: Neuroendocrine carcinoma of small bowel. TECHNIQUE: Magnetic resonance imaging (MRI) of the abdomen was performed without and with 15 mL Multi Karen intravenous contrast. Sequences included coronal T2-weighted FS FSE, coronal and axial FS FIEST A, axial T2-weighted FSE, coronal LAVA-flex, axial STIR FSE, axial DWI, axial dual-echo T1-weighted F SPGR, and axial LAVA. Postcontrast sequences included coronal LAVA-flex and a time course of axial LA VA. COMPARISON: Abdomen MRI 01/31/2021, 05/09/09 FINDINGS: There are greater than 20 masses in the liver measuring up to 5.4 x 4.2 cm in right hepatic lobe, not significantly changed from 5.2 x 4.2 cm. The masses are all either mixed cystic and solid or predomi nantly cystic. The gallbladder is absent. The spleen, pancreas, adrenal glands, are normal. There are changes of ablation of left kidney. There are cysts in the kidneys measuring up to 7 mm on the right . There are no dilated loops of bowel. There are no pathologically enlarged lymph nodes. There is no free intraperitoneal fluid. IMPRESSION: 1. Greater than 20 liver masses, stable from 01/31/2021, consistent with metastatic carcinoid. Reviewed, dictated and finalized at location A. RMATION TECHNOLOGY INTERN IMPRESSION: 1. Greater than 20 liver masses, stable from 01/31/2021, consistent with metasta tic carcinoid.
== END 2021-04-27 12:42 | disposition home or self-care (01) ==
PROVIDERS: PCP Family Medicine; Visit Provider Internal Medicine Medical Oncology
DX: C7A.8 Other malignant neuroendocrine tumors (principal); C7B.8 Other secondary neuroendocrine tumors
CPT/HCPCS: 74183; A9577

== ENCOUNTER 2021-05-08 13:27 | Outpatient (CLI) | payer MEDICARE, SELFPAY ==
--- NOTE | 2021-05-08 13:45 | ECHO_ITS ---
Patient Info Name: Mando Pacheco Age: 71 years : 1950 Gender: Male Ht: 70 in Wt: 165 lbs BSA: 1.93 m2 HR: 81 bpm BP: 146 / 94 mmHg Technical Quality: Good Exam Date: 05/08/2021 2:01 PM Exam Location: [facility] Patient Status: Outpatient Admit Date: 05/08/2021 Staff Ordering Physician: Maame Jimenez MD Director Inbound Sales: Fabiola Vann RDCS Attending Provider: Maame Jimenez MD Exam Type: CA echo doppler color flow Study Info Indications I10 - Essential (primary) hypertension Complete two-dimensional, color flow and Doppler transthoracic echocardiogram is performed. Summary 1. Complete two-dimensional, color flow and Doppler transthoracic echocardiogram is performed. 2. Left ventricular chamber dimension is normal. 3. Left ventricular systolic function is normal, estimated at 60-65%. 4. There is mildly increased left ventricular wall thickness. 5. The left ventricular diastolic function is grade I diastolic dysfunction. 6. E/e' 9 is minimally elevated. 7. Global longitudinal strain is slightly abnormal at -16.7%. 8. There is mild aortic valve sclerosis. 9. There is mild aortic valve regurgitation. 10. There is mild mitral valve regurgitation. 11. No pulmonary hypertension, estimated pulmonary arterial systolic pressure is 29 mmHg. 12. There is trace pulmonic regurgitation. 13. The aortic root size at the sinus of Valsalva is mildly dilated at 4.1 cm. Left Ventricle E/e' 9 is minimally elevated. Global longitudinal strain is slightly abnormal at -16.7%. Left ventricular chamber dimension is normal. Left ventricular systolic function is normal, estimated at 60-65%. There is mildly increased left ventricular wall thickness. The left ventricular diastolic function is grade I diastolic dysfunction. Right Ventricle Right ventricular systolic function is normal and with normal TAPSE 2.2 cm. Right ventricular chamber dimension is normal. Left Atria Left atrial chamber dimension is normal. Right Atria Right atrial chamber dimension is normal. Aortic Valve The aortic valve is trileaflet. There is mild aortic valve sclerosis. There is no aortic valve stenosis. There is mild aortic valve regurgitation. Pulmonic Valve There is trace pulmonic regurgitation. Mitral Valve There is no mitral valve stenosis. There is mild mitral valve regurgitation. Tricuspid Valve There is no tricuspid valve regurgitation. No pulmonary hypertension, estimated pulmonary arterial systolic pressure is 29 mmHg. Pericardium/Pleural There is no pericardial effusion. Inferior Vena Cava Normal inferior vena cava with >50% collapse upon inspiration consistent with normal right atrial pressure, 5 mmHg. Aorta The aortic root size at the sinus of Valsalva is mildly dilated at 4.1 cm. Left Ventricular Outflow Tract Name Value Normal LVOT 2D LVOT Diameter 2.0 cm LVOT Doppler LVOT Peak Gradient 5 mmHg LVOT Mean Gradient 3 mmHg LVOT VTI 23 cm LVOT VTI/AV VTI Ratio 0.8
== END 2021-05-08 13:28 | disposition home or self-care (01) ==
LOC: ANHCARD 13:29
PROVIDERS: PCP Family Medicine; Visit Provider Family Medicine
DX: R01.1 Cardiac murmur, unspecified (principal); I10 Essential (primary) hypertension; I35.1 Nonrheumatic aortic (valve) insufficiency; I34.0 Nonrheumatic mitral (valve) insufficiency
CPT/HCPCS: 93306

== ENCOUNTER 2021-05-16 01:14 | Day surgery (SDC) | payer MEDICARE, SELFPAY ==
[2021-05-03 13:50] VITALS: BMI 24.0
[2021-05-16 09:49] VITALS: BP 134/74; PULSE 67; RESP 20; TEMP 36.1; O2SAT 97
[2021-05-16] MEDS: LACTATED RINGERS 1,000 ML 150 ML IV CONT (10:00)
--- NOTE | 2021-05-16 10:08 | WPDANESEPPF ---
Anes - Initial Pre Proc Eval Procedure: Operation Date: 05/16/21 11:00 Proposed Procedures p Screening Colonoscopy - Serafin Gallego MD Date/Time: 05/16/21 10:08 Surgeon: Serafin Gallego MD Pre Op Diagnosis: hx of colon polyps Patient Data Age: 71 Gender: M Height: 1.78 m Weight: 71.1 kg Last Vital Signs Temp 36.1 C L 05/16/21 09:49 Pulse 67 05/16/21 09:49 Resp 20 05/16/21 09:49 BP 134/74 05/16/21 09:49 Pulse Ox 97 05/16/21 09:49 Allergies Allergy/AdvReac Type Severity Reaction Status Date / Time No Known Allergies Allergy Verified 05/16/21 09:44 Home Medications Medication Instructions Recorded Confirmed Type multivitamin 1 tablet PO DAILY 07/12/19 05/03/21 History lanreotide 90 mg/0.3 mL 90 mg [id number] ml 02/14/20 05/03/21 History subcutaneous syringe amlodipine 10 mg PO DAILY 04/07/21 05/16/21 History aspirin [Adult Aspirin EC Low 81 mg PO DAILY 04/07/21 05/16/21 History Strength] cholecalciferol (vitamin D3) 50 mcg PO DAILY 04/07/21 05/03/21 History [Vitamin D3] cyanocobalamin (vitamin B-12) 1,000 mcg PO DAILY 04/07/21 05/03/21 History [Vitamin B-12] lovastatin 20 mg PO DAILY 04/07/21 05/03/21 History magnesium 500 mg PO DAILY 04/07/21 05/03/21 History ferrous sulfate 325 mg PO DAILY 05/03/21 05/03/21 History levetiracetam 750 mg PO BID 05/03/21 05/16/21 History Patient hx anesthesia problems: none Family hx anesthesia problems: none Results Review: All pre-operative results and documents have been reviewed as part of the pre-operative evaluation. [facility] Past Medical History Medical History Carcinoid tumor Carcinoid tumor Dyslipidemia Erectile dysfunction Hyperlipidemia Hypertension Hypertension Kidney stones Seizure disorder Seizure disorder Surgical History Surgical History History of laparotomy removal of carcinoid tumor from ileum - 09/2007 Hx of cholecystectomy 05/2007 Family History Family History Father Cancer Social History Social History Smoking packs per day: 1 Smoking cigarettes per day: 20.0 Years smoked: 8 Smoking pack-years: 8.00 Smoking status: Former smoker Tobacco type: cigarettes Alcohol intake: current Drinks per week: 1 Alcohol use details: Occasional use Substance use: never Substance use type: does not use Living arrangements: with family Gender identity (if verbalized by the patient): Male Spiritual care concerns: No Anes - Eval Final PreProcedure Day of Procedure 05/16/21 10:08 Patient weight: normal Heart: regular rate and rhythm Lungs: clear to auscultation Airway: Mallampati scale Neurological: alert and oriented Last oral intake: >/= 8 hours ASA classification: III Emergent: no Anesthetic plan: proceed Anesthesia type and monitoring: general GIVS and standard monitoring Results Review: All pre-operative results and documents have been reviewed as part of the pre-operative evaluation. Informed Consent: The patient's anesthetic plan and its attendant risks and benefits were discussed with the patient/family/POA. Questions were solicited and answers provided to the satisfaction of the patient/family/POA.
--- NOTE | 2021-05-16 10:56 | PM.HPGS ---
History of Present Illness History of Present Illness Consent: Risks, benefits, and alternatives have been discussed and questions answered. Patient agrees to proceed with procedure. Chief complaint: hx of colon polyps Narrative: Mando Pacheco is a 71 year old male with colon polyps, last colonoscopy in 2019 Review of Systems Constitutional: Constitutional: Denies headache(s) and Denies weakness Eyes: Eyes: Denies blurry vision ENT: Reports Normal hearing present, Denies headache(s) and Denies neck pain Cardiovascular: Cardiovascular: Denies chest pain and Denies dyspnea Respiratory: Respiratory: Denies dyspnea Gastrointestinal: Gastrointestinal: Reports no additional gastrointestinal complaints Genitourinary: Genitourinary: Denies dysuria Musculoskeletal: Musculoskeletal: Denies neck pain Integumentary/Breasts: Skin/Breast: Denies dry skin Neurologic: Reports Normal hearing present, Denies headache(s) and Denies weakness Psychiatric: Psychiatric: Denies anxiety Endocrine: Endocrine: Denies change in body appearance Hematologic/Lymphatic: Hematologic/Lymphatic: Denies easy bleeding Allergic/Immunologic: Allergic/Immunologic: Denies urticaria PMFSH Past Medical History Medical History (Updated 05/16/21 @ 10:57 by Serafin Gallego MD) Carcinoid tumor Carcinoid tumor Colon polyp Dyslipidemia Erectile dysfunction Hyperlipidemia Hypertension Hypertension Kidney stones Seizure disorder Seizure disorder Surgical History Surgical History History of laparotomy removal of carcinoid tumor from ileum - 09/2007 Hx of cholecystectomy 05/2007 Family History Family History Father Cancer Social History Social History Smoking packs per day: 1 Smoking cigarettes per day: 20.0 Years smoked: 8 Smoking pack-years: 8.00 Smoking status: Former smoker Tobacco type: cigarettes Alcohol intake: current Drinks per week: 1 Alcohol use details: Occasional use Substance use: never Substance use type: does not use Living arrangements: with family Gender identity (if verbalized by the patient): Male Spiritual care concerns: No Meds Home Medications and Allergies Home Medications Medication Instructions Recorded Confirmed Type multivitamin 1 tablet PO DAILY 07/12/19 05/03/21 History lanreotide 90 mg/0.3 mL 90 mg SUB-Q [id number] ml 02/14/20 05/03/21 History subcutaneous syringe amlodipine 10 mg PO DAILY 04/07/21 05/16/21 History aspirin [Adult Aspirin EC Low 81 mg PO DAILY 04/07/21 05/16/21 History Strength] cholecalciferol (vitamin D3) 50 mcg PO DAILY 04/07/21 05/03/21 History [Vitamin D3] cyanocobalamin (vitamin B-12) 1,000 mcg PO DAILY 04/07/21 05/03/21 History [Vitamin B-12] lovastatin 20 mg PO DAILY 04/07/21 05/03/21 History magnesium 500 mg PO DAILY 04/07/21 05/03/21 History ferrous sulfate 325 mg PO DAILY 05/03/21 05/03/21 History levetiracetam 750 mg PO BID 05/03/21 05/16/21 History Allergies Allergy/AdvReac Type Severity Reaction Status Date / Time No Known Allergies Allergy Verified 05/16/21 09:44 Vital Signs Vital Signs - 24 hr 05/16/21 09:49 Temperature 96.9 F L Pulse Rate 67 Respiratory Rate 20 Blood Pressure 134/74 Pulse Oximetry 97 Exam Const: General: comfortable and no acute distress HENMT: General nose exam: Normal nares present Eyes: General: appearance normal, both eyes and all related structures Neck: Neck: no JVD Resp: Auscultation: clear to auscultation bilaterally Cardio: Rate: regular rate Rhythm: regular rhythm GI: Inspection: non-distended GI Palp: Yes Soft to palpation Skin: General skin exam: normal color Neuro: General: gait normal Speech: normal speech Extrem: General: normal to inspection Psy
[2021-05-16 11:17] VITALS: BP 86/51; PULSE 60; RESP 17; O2SAT 94
[2021-05-16 11:27] VITALS: BP 96/65; PULSE 65; RESP 20; O2SAT 95
[2021-05-16 11:37] VITALS: BP 106/67; PULSE 63; RESP 24; O2SAT 98
== END 2021-05-16 11:49 | disposition home or self-care (01) ==
PROVIDERS: PCP Family Medicine; Visit Provider Internal Medicine Gastroenterology
PROC: 0DJD8ZZ Inspection of Lower Intestinal Tract, Via Natural or Artificial Opening Endoscopic (ICD-10-PCS; CPT 45378; principal; 2021-05-16 11:00)
DX: Z12.11 Encounter for screening for malignant neoplasm of colon (principal); D12.2 Benign neoplasm of ascending colon; D12.3 Benign neoplasm of transverse colon; K63.5 Polyp of colon; K64.8 Other hemorrhoids; I10 Essential (primary) hypertension; E78.5 Hyperlipidemia, unspecified; G40.909 Epilepsy, unspecified, not intractable, without status epilepticus; Z79.82 Long term (current) use of aspirin; Z87.891 Personal history of nicotine dependence
CPT/HCPCS: 45385; 88305; J2704; J7120

== ENCOUNTER 2021-07-18 12:26 | Outpatient (CLI) | payer MEDICARE, SELFPAY ==
--- NOTE | ~2021-07-18 | MR_ITS ---
EXAMINATION: MR abdomen wo/w con DATE: 07/18/2021 13:43 INDICATION: Metastatic neuroendocrine tumor. TECHNIQUE: Magnetic resonance imaging (MRI) of the abdomen was performed without and with 15 mL Multi Karen intravenous contrast. COMPARISON: Abdomen MRI 04/27/2021 FINDINGS: There are greater than 20 masses in the liver measuring up to 5.4 x 4.3 cm, most of which are unchang ed and some of which are only mildly changed. The masses are all either mixed cystic and solid or pre dominantly cystic. The gallbladder is absent. The spleen, pancreas, and adrenal glands are normal. Th ere is cortical thinning of the kidneys. There are changes of cryoablation of left kidney. There are cysts in the kidneys measuring up to 7 mm on the right. There are no dilated loops of bowel. There ar e no pathologically enlarged lymph nodes. There is no free intraperitoneal fluid. IMPRESSION: 1. Greater than 20 liver masses, stable from 04/27/21, consistent with metastatic carcinoid. Reviewed, dictated and finalized at location A.
[2021-07-18 13:00] LABS: Estimated Glomerular Filt Rate > 60
== END 2021-07-18 12:27 | disposition home or self-care (01) ==
PROVIDERS: PCP Family Medicine; Visit Provider Internal Medicine Medical Oncology
DX: C7B.00 Secondary carcinoid tumors, unspecified site (principal); C7B.8 Other secondary neuroendocrine tumors; C7A.8 Other malignant neuroendocrine tumors
CPT/HCPCS: 74183; A9577

== ENCOUNTER 2021-07-30 09:41 | Outpatient (CLI) | payer MEDICARE, SELFPAY ==
--- NOTE | ~2021-07-30 | XR_ITS ---
XR abdomen/kub 1V 07/30/2021 10:09 Indication: Renal stone Procedure: KUB Comparison: Comparison to multiple prior studies sequentially, with oldest reviewed study dated 12/25. Findings: There are bilateral renal stones. There are surgical changes in the right upper abdomen. Th ere are cholecystectomy clips. Bowel gas pattern is nonobstructive. No acute osseous abnormality. Impression: 1: Bilateral nephrolithiasis. Reviewed, dictated and finalized at location B. Impression: 1: Bilateral nephrolithiasis.
== END 2021-07-30 09:42 | disposition home or self-care (01) ==
LOC: ANHIMG 09:47
PROVIDERS: PCP Family Medicine; Visit Provider Urology
DX: N20.0 Calculus of kidney (principal)
CPT/HCPCS: 74018

== ENCOUNTER 2021-10-09 12:59 | Outpatient (CLI) | payer MEDICARE, SELFPAY ==
--- NOTE | 2021-10-09 14:38 | WPDNEUROLOGY ---
Neurology EEG Report General Information Date of Study: 10/09/21 TEST Routine EEG DIAGNOSIS Complex Partial seizures CONDITION OF RECORDING Awake and drowsy EEG NUMBER [id number] CLINICAL HISTORY Patient states that he had a small episode of spacing out about 5 years ago. He has been fine except for a similar episode a couple of months ago. EEG DESCRIPTION During the awake state with eyes closed the background consists of 10 Hz posterior dominant rhythm which attenuates appropriately with eye opening. The recording is continuous. There is a well developed anterior-posterior gradient. No significant asymmetries of background activities are noted. With drowsiness there is was waxing and waning of the dominant rhythm with eventual replacement by a mixture of beta, alpha, and theta activity. Patient did not enter stage II sleep. There are no epileptiform discharges or seizures during this recording. Photic stimulation was performed which did not provoke any epileptiform discharges or seizures. IMPRESSION This is a normal routine EEG recorded in awake and drowsy states. There are no electrographic seizures identified, nor are there any epileptiform discharges. Please note that a normal EEG cannot exclude a seizure disorder. Clinical correlation is recommended.
== END 2021-10-09 13:00 | disposition home or self-care (01) ==
LOC: ANHNEURO 13:00
PROVIDERS: PCP Family Medicine; Visit Provider Nurse Practitioner Gerontology
DX: G40.209 Localization-related (focal) (partial) symptomatic epilepsy and epileptic syndromes with complex partial seizures, not intractable, without status epilepticus (principal)
CPT/HCPCS: 95816

== ENCOUNTER 2021-10-11 13:04 | Outpatient (CLI) | payer MEDICARE, SELFPAY ==
--- NOTE | ~2021-10-11 | MR_ITS ---
EXAMINATION: MR abdomen wo/w con INDICATION: Neuroendocrine carcinoma of small bowel TECHNIQUE: Coronal SSFSE ARC, WATER:coronal LAVA-FLEX, Coronal 2D FIESTA FatSat, Axial SSFSE BH ARC, Axial 3D DualEcho BH, Axial SSFSE-IR, Axial DWI b=500, Axial 2D FIESTA FatSat, pre and dynamic postco ntrast Axial LAVA ARC, postcontrast Coronal In and Opposed phase LAVA FLEX COMPARISON: 07/08/2021 CONTRAST: Multihance, 14 cc FINDINGS: Multiple stable liver masses are again seen. The largest measures 5.5 cm in the right hepat ic lobe and demonstrates lacelike reticular internal enhancement. No new liver masses are identified. There are cysts of the kidneys including a 7 mm hemorrhagic cyst of the right kidney upper pole. The spleen, pancreas, and adrenal glands are normal. The gallbladder is surgically absent. There are no pathologically enlarged abdominal lymph nodes. There are no dilated loops of bowel. IMPRESSION: 1. Multiple stable liver masses, consistent with metastatic carcinoid. Reviewed, dictated and finalized at location A.
== END 2021-10-11 13:05 | disposition home or self-care (01) ==
PROVIDERS: PCP Family Medicine; Visit Provider Internal Medicine Medical Oncology
DX: C7A.8 Other malignant neuroendocrine tumors (principal); C7B.8 Other secondary neuroendocrine tumors
CPT/HCPCS: 74183; A9577

== ENCOUNTER 2022-01-02 12:44 | Outpatient (CLI) | payer MEDICARE, SELFPAY ==
--- NOTE | ~2022-01-02 | MR_ITS ---
EXAMINATION: MR abdomen wo/w con INDICATION: Metastatic neuroendocrine tumor of the small bowel TECHNIQUE: Coronal SSFSE ARC, WATER:coronal LAVA-FLEX, Coronal 2D FIESTA FatSat, Axial SSFSE BH ARC, Axial 3D DualEcho BH, Axial SSFSE-IR, Axial DWI b=500, Axial 2D FIESTA FatSat, pre and dynamic postco ntrast Axial LAVA ARC, postcontrast Coronal In and Opposed phase LAVA FLEX COMPARISON: 10/11/2021 CONTRAST: Multihance, 16 cc FINDINGS: Again seen are multiple stable liver masses. The largest mass measures 5.5 x 3.9 cm in the right hepatic lobe and continues to demonstrate lacelike reticular internal enhancement. No definite new liver masses are seen. There is a new area of nodular enhancement in the right lower lobe measuri ng 10 mm. The gallbladder is surgically absent. The spleen, pancreas, and adrenal glands are normal. Simple cysts of the kidneys are again noted which measure up to 11 mm on the left. There is a 7 mm he morrhagic cyst of the right kidney. There are no pathologically enlarged abdominal lymph nodes. No di lated loops of bowel are evident. IMPRESSION: 1. Multiple stable liver masses, consistent with metastatic carcinoid. 2. New indeterminate nodule of the right lower lobe. Follow-up with CT of the chest is recommended. Reviewed, dictated and finalized at location B. INFRASTRUCTURE PROJECT MANAGER IMPRESSION: 1. Multiple stable liver masses, consistent with metastatic carcinoid. 2. New indeterminate nodule of the right lower lobe. Follow-up with CT of the c hest is recommended.
== END 2022-01-02 12:45 | disposition home or self-care (01) ==
PROVIDERS: PCP Family Medicine
DX: C7B.8 Other secondary neuroendocrine tumors (principal); K76.89 Other specified diseases of liver
CPT/HCPCS: 74183; A9577

== ENCOUNTER 2022-03-26 12:34 | Outpatient (CLI) | payer MEDICARE, SELFPAY ==
[2022-03-26 14:10] LABS: Kit Draw Collected
== END 2022-03-26 12:35 | disposition home or self-care (01) ==
LOC: ANHGOSHLAB 12:36
PROVIDERS: PCP Family Medicine; Visit Provider Family Medicine
DX: E55.9 Vitamin D deficiency, unspecified (principal); I10 Essential (primary) hypertension; E78.5 Hyperlipidemia, unspecified; E53.8 Deficiency of other specified B group vitamins
CPT/HCPCS: 36415

== ENCOUNTER 2022-03-28 14:45 | Outpatient (CLI) | payer MEDICARE, SELFPAY ==
--- NOTE | ~2022-03-28 | CT_ITS ---
EXAMINATION: CT chest abdomen pelvis w con DATE: 03/28/2022 15:10 INDICATION: Carcinoid tumor of the gastrointestinal tract. TECHNIQUE: Computed tomography (CT) of the chest, abdomen, and pelvis was performed with 100 mL Omnip aque 350 intravenous contrast. Automated exposure control and iterative reconstruction technique were employed. The dose-length product was 475.33 mGy-cm. COMPARISON: CT chest, abdomen, and pelvis 05/11/2020 FINDINGS: CHEST CT: There is mild emphysema. There is a staple line in right lung middle lobe with associated scarring. T here is a new 8 mm nodule in right lower lobe abutting the pleura. No pleural effusion. The heart siz e is normal. No pericardial effusion. There is ectasia of ascending aorta measuring 4.6 cm. There is mild bilateral gynecomastia. There is severe thoracic spondylosis. There is mild chronic anterior wed ging of multiple vertebral bodies. ABDOMEN/PELVIS CT: There are multiple cysts in the liver measuring up to 3.9 cm. There are multiple masses in the liver. For example, a 6.5 x 4.8 cm mass in right hepatic lobe previously measured 5.7 x 4.4 cm. A 3.1 x 2.9 cm mass in right hepatic lobe previously measured 2.8 x 2.6 cm . A 3.2 x 2.7 cm mass in right hepati c lobe previously measured 4.9 x 3.2 cm. The spleen, pancreas, and adrenal glands are normal. There i s cortical thinning of the kidneys. There are cysts in the kidneys measuring up to 6 mm on the right. There is a 6 mm stone in left kidney. The prostate is mildly enlarged. There is a staple line in the ileum. There are no pathologically enlarged lymph nodes. There is no free intraperitoneal fluid. The re is a left inguinal hernia containing fat. There are chronic small masses in the subcutaneous fat i n the buttocks, likely old fat necrosis. There is moderate thoracic lumbar spondylosis. There is a he mangioma in L1 vertebral body. IMPRESSION: 1. New 8 mm lung nodule, which is indeterminate for primary bronchogenic or metastatic disease. Consi ana noncontrast low-dose chest CT in 3 months. 2. Liver masses with mixed response to therapy, consistent with metastatic disease. 3. Mild emphysema. Reviewed, dictated and finalized at location A. [facility] IMPRESSION: 1. New 8 mm lung nodule, which is indeterminate for primary bronchogenic or met astatic disease. Consider noncontrast low-dose chest CT in 3 months. 2. Liver masses with mixed response to therapy, consistent with metastatic dise ase. 3. Mild emphysema.
== END 2022-03-28 14:46 | disposition home or self-care (01) ==
PROVIDERS: PCP Family Medicine; Visit Provider Internal Medicine Medical Oncology
DX: D3A.098 Benign carcinoid tumors of other sites (principal); C7B.00 Secondary carcinoid tumors, unspecified site; C7B.8 Other secondary neuroendocrine tumors; J43.9 Emphysema, unspecified; R91.1 Solitary pulmonary nodule
CPT/HCPCS: 71260; 74177; Q9967

== ENCOUNTER 2022-07-17 12:51 | Outpatient (CLI) | payer MEDICARE, SELFPAY ==
--- NOTE | ~2022-07-17 | XR_ITS ---
Supine and upright views of the abdomen Clinical history: Renal stone COMPARISON: 07/30/2021 Findings: Bowel gas pattern is nonspecific. No evidence for obstruction or free air. Probable left ne phrolithiasis, unchanged. Suture line in the right mid abdomen present. Cholecystectomy clips present . Osseous structures are intact. Impression: Stable probable left nephrolithiasis. Reviewed, dictated and finalized at [facility]. Impression: Stable probable left nephrolithiasis.
== END 2022-07-17 12:52 | disposition home or self-care (01) ==
PROVIDERS: PCP Family Medicine; Visit Provider Urology
DX: N20.0 Calculus of kidney (principal); Z12.5 Encounter for screening for malignant neoplasm of prostate
CPT/HCPCS: 36415; 74018; 84153; G0103

== ENCOUNTER 2022-08-20 07:21 | Outpatient (CLI) | payer MEDICARE, SELFPAY ==
--- NOTE | ~2022-08-20 | CT_ITS ---
Clinical Indication: Metastatic neoplasm CT Scan of the Chest, Abdomen, and Pelvis with Contrast: Technique: Contiguous sections were acquired throughout the chest, abdomen, and pelvis after intraven ous administration of 100 cc of Omnipaque 350. Dose reduction technique was used on this scan by [employer] joanning automated exposure control and iterative reconstruction technique. The dose-length product (DL P) was 454.53 mGy-cm. COMPARISON: 03/28/2022 Findings: There is no evidence of any significant mediastinal, hilar or axillary lymphadenopathy. The mediastin al soft tissues and vascular structures appear normal. There is no evidence of pleural or pericardial effusion. Probable prior partial resection of the right middle lobe, unchanged. 5 mm right lower lobe pulmonary nodule is similar to prior exam. Numerous hypodense hepatic masses are essentially stable in size and distribution from prior exam. Ch olecystectomy clips are present. The spleen, pancreas, adrenals and kidneys are within normal limits. No evidence of aortic aneurysm. No lymphadenopathy. Possible scattered areas of wall thickening in the large bowel, most prominent/notable at the ascendi ng colon. No shante bowel obstruction evident. Small bowel is nondistended. Urinary bladder is unremarkable. Prostate gland and seminal vesicles are unremarkable. Impression: Extensive hepatic metastatic disease, without significant change from prior exam. Questionable scattered areas of wall thickening in the large bowel, most prominent at the ascending c olon. Correlate for infectious/inflammatory colitis versus any possibility of neoplastic involvement. Subcentimeter right lower lobe pulmonary nodule, similar to prior exam. Reviewed, dictated and finalized at location M. Impression: Extensive hepatic metastatic disease, without significant change from prior exa m. Questionable scattered areas of wall thickening in the large bowel, most promin ent at the ascending colon. Correlate for infectious/inflammatory colitis versu s any possibility of neoplastic involvement. Subcentimeter right lower lobe pulmonary nodule, similar to prior exam.
[2022-08-20 07:50] LABS: Estimated Glomerular Filt Rate > 60
== END 2022-08-20 07:22 | disposition home or self-care (01) ==
PROVIDERS: PCP Family Medicine; Visit Provider Nurse Practitioner Family
DX: C79.51 Secondary malignant neoplasm of bone (principal)
CPT/HCPCS: 71260; 74177; Q9967

== ENCOUNTER 2022-09-22 10:39 | Outpatient (CLI) | payer MEDICARE, SELFPAY ==
--- NOTE | ~2022-09-22 | MR_ITS ---
MRI of the brain Clinical History: Seizures Technique: Axial and sagittal T1-weighted images were acquired. These were followed by axial T2-weigh kp, diffusion weighted, gradient, and FLAIR images. Findings: There is no acute infarct, intracranial hemorrhage, or mass lesion. There is moderate chron ic microvascular ischemic change in the periventricular matter bilaterally. Ventricles and subarachnoid spaces are unremarkable. Orbits are unremarkable. There is fluid in left mastoid air cells. There is mucosal thickening in the bilateral maxillary sinuses. Remaining paranasa l sinuses and right mastoid air cells are clear. Major intracranial flow voids appear intact. Sagittal midline structures are intact. IMPRESSION: No acute abnormality. Moderate chronic microvascular ischemic changes. Reviewed, dictated and finalized at location .
== END 2022-09-22 10:40 | disposition home or self-care (01) ==
PROVIDERS: PCP Family Medicine; Visit Provider Nurse Practitioner Gerontology
DX: G40.209 Localization-related (focal) (partial) symptomatic epilepsy and epileptic syndromes with complex partial seizures, not intractable, without status epilepticus (principal); R93.0 Abnormal findings on diagnostic imaging of skull and head, not elsewhere classified
CPT/HCPCS: 70551

== ENCOUNTER 2022-10-11 12:53 | Emergency (ER) | payer MEDICARE, SELFPAY ==
--- NOTE | 2022-10-11 12:57 | ED.WOUNDLAC ---
HPI - Wound/Laceration General Chief Complaint: Skin/Abscess/Foreign Body Stated Complaint: WASP STING Time Seen by Provider: 10/11/22 12:57 Source: patient Mode of arrival: ambulatory Limitations: no limitations History of Present Illness HPI narrative: Patient is a 72-year-old male who presents with wasp sting to left shoulder about an hour and half ago. Patient states he has been stung in the past but is not usually as painful. Patient reports intermittent sharp shooting pain to area. Has not taken anything for pain or placed ice on the area. Denies any significant redness or swelling to area. Related Data Home Medications Medication Instructions Recorded Confirmed multivitamin 1 tablet PO DAILY 07/12/19 10/11/22 lanreotide 90 mg/0.3 mL 90 mg subcut .[id number] 02/14/20 10/11/22 subcutaneous syringe aspirin 81 mg tablet,delayed 81 mg PO DAILY 04/07/21 10/11/22 release cholecalciferol (vitamin D3) 50 50 mcg PO DAILY 04/07/21 10/11/22 mcg (2,000 unit) capsule (Vitamin D3) cyanocobalamin (vitamin B-12) 1,000 mcg PO DAILY 04/07/21 10/11/22 1,000 mcg tablet (Vitamin B-12) magnesium 500 mg tablet 500 mg PO DAILY 04/07/21 10/11/22 ferrous sulfate 325 mg (65 mg 325 mg PO DAILY 05/03/21 10/11/22 iron) tablet levetiracetam 750 mg tablet 750 mg PO BID 05/03/21 10/11/22 lovastatin 20 mg tablet 20 mg PO QHS 02/28/22 10/11/22 denosumab 120 mg/1.7 mL (70 mg/mL) 120 mg subcut .qmonth 08/29/22 10/11/22 subcutaneous solution (Xgeva) everolimus (antineoplastic) 10 mg 10 mg PO DAILY 08/29/22 10/11/22 tablet prednisone 5 mg/mL oral concentrate 5 mg PO BID 08/29/22 10/11/22 sildenafil 100 mg tablet 100 mg PO DAILY PRN Erectile 08/29/22 10/11/22 Dysfunction tamsulosin 0.4 mg capsule 0.4 mg PO .PRN 08/29/22 10/11/22 Allergies Allergy/AdvReac Type Severity Reaction Status Date / Time No Known Allergies Allergy Verified 10/11/22 13:16 Review of Systems Review of Systems: All systems reviewed & are unremarkable except as noted in HPI and below Constitutional: Constitutional: Denies body ache(s), Denies chills, Denies fatigue, Denies fever(s), Denies headache(s), Denies malaise and Denies weakness Eyes: Eyes: Denies blurry vision, Denies irritation and Denies loss of vision ENT: Denies otalgia, Denies headache(s), Denies nasal discharge, Denies sinus pain and Denies sore throat Cardiovascular: Cardiovascular: Denies chest pain, Denies irregular heart rhythm and Denies dyspnea Respiratory: Respiratory: Denies dyspnea Gastrointestinal: Gastrointestinal: Denies abdominal pain, Denies melena, Denies hematochezia, Denies diarrhea, Denies nausea and Denies vomiting Musculoskeletal: Musculoskeletal: Denies back pain, Denies myalgias and Denies arthralgias Integumentary/Breasts: Skin/Breast: Reports pruritus, Denies rash and Reports skin pain Neurologic: Denies headache(s), Denies loss of vision and Denies weakness Psychiatric: Psychiatric: Reports no additional psychiatric complaints Endocrine: Endocrine: Denies fatigue PMFSH Past Medical History Medical History BPH NOS w/o ur obs/LUTS Cancer of spinal column Carcinoid tumor Colon polyp Dyslipidemia Erectile dysfunction Hypertension Kidney stones Seizure Surgical History Surgical History History of laparotomy removal of carcinoid tumor from ileum - 09/2007 Hx of cholecystectomy 05/2007 Family History Family History Father Cancer Social History Social History Smoking packs per day: 1 Smoking cigarettes per day: 20.0 Years smoked: 8 Smoking pack-years: 8.00 Smoking status: Former smoker Tobacco type: cigarettes Alcohol intake: current Drinks per week: 1 Alcohol use details: Occasional use
[2022-10-11 13:01] VITALS: BP 107/66; PULSE 81; RESP 16; TEMP 36.9; O2SAT 99
== END 2022-10-11 14:06 | disposition home or self-care (01) ==
PROVIDERS: Emergency Provider Nurse Practitioner Family; PCP Family Medicine
DX: T63.461A Toxic effect of venom of wasps, accidental (unintentional), initial encounter (principal); Z87.891 Personal history of nicotine dependence; N40.0 Benign prostatic hyperplasia without lower urinary tract symptoms; E78.5 Hyperlipidemia, unspecified; I10 Essential (primary) hypertension; G40.909 Epilepsy, unspecified, not intractable, without status epilepticus; Z85.848 Personal history of malignant neoplasm of other parts of nervous tissue
CPT/HCPCS: 99212; G0463

== ENCOUNTER 2022-11-13 13:32 | Outpatient (CLI) | payer MEDICARE, SELFPAY ==
--- NOTE | ~2022-11-13 | CT_ITS ---
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 The dose-length product (DLP) was 385.31 mGy-cm. Automated exposure contro l and iterative reconstruction technique were employed. COMPARISON: 08/20/2022 FINDINGS: CHEST CT: There is a stable line with adjacent scarring in the right middle lobe. There is a stable 8 mm subple ural nodule of the right lower lobe. There is a stable 3 mm nodule in the left lower lobe. No pleural effusion or pneumothorax. No pathologically enlarged thoracic lymph nodes are identified. The heart size is normal. There is stable ectasia of the ascending aorta measuring 4.6 cm at the level of the m ain pulmonary artery. Bilateral gynecomastia is noted. There is severe thoracic spondylosis. ABDOMEN/PELVIS CT: There are multiple cysts of the liver. Multiple metastatic lesions are also noted which have not sign ificantly changed in size. The largest measures 6.7 cm in the right hepatic lobe. There are changes o f cholecystectomy. The spleen, pancreas, and adrenal glands are normal. There is a 6 mm nonobstructin g stone of the left mid kidney. There is a 2 mm nonobstructing stone of the right mid kidney. No path ologically enlarged abdominal or pelvic lymph nodes are identified. No free intraperitoneal gas or ev idence of bowel obstruction. There is a staple line in the ileum. Again noted are chronic small soft tissue density masses in the subcutaneous fat of the buttocks, likely old fat necrosis. There is mode rate lumbar spondylosis. IMPRESSION: 1. Stable lung nodules. 2. Stable metastatic disease of the liver. Reviewed, dictated and finalized at location D.
== END 2022-11-13 13:33 | disposition home or self-care (01) ==
PROVIDERS: PCP Family Medicine; Visit Provider Nurse Practitioner Family
DX: C7A.8 Other malignant neuroendocrine tumors (principal); C7B.8 Other secondary neuroendocrine tumors
CPT/HCPCS: 71250; 74176

== ENCOUNTER 2023-03-05 12:44 | Outpatient (CLI) | payer MEDICARE, SELFPAY ==
--- NOTE | ~2023-03-05 | CT_ITS ---
Clinical Indication: Malignant neoplasm metastatic to bone, neuroendocrine carcinoma of small bowel CT Scan of the Chest, Abdomen, and Pelvis with Contrast: Technique: Contiguous sections were acquired throughout the chest, abdomen, and pelvis after intraven ous administration of 100 cc of Omnipaque 350. Dose reduction technique was used on this scan by [employer] joanning automated exposure control and iterative reconstruction technique. The dose-length product (DL P) was 505.87 mGy-cm. COMPARISON: 11/13/2022 Findings: There is no evidence of any significant mediastinal, hilar or axillary lymphadenopathy. The mediastin al soft tissues and vascular structures appear normal. There is no evidence of pleural or pericardial effusion. Right middle lobe scarring is ordered to prior exam. Stable right basilar pulmonary nodule noted (axi al image 102). Stable 3 mm left lower lobe pulmonary nodule. Multiple hepatic lesions are similar in size and distribution to prior exam, with largest lesion in t he right hepatic lobe posteriorly measuring 6.4 cm in diameter. Larger lesions are somewhat complex/h eterogeneous appearance, and many of the smaller lesions are more simple in appearance. Cholecystecto my clips are present. The spleen, pancreas, adrenals and kidneys are within normal limits. No eviden ce of aortic aneurysm. No lymphadenopathy. No bowel obstruction or bowel wall thickening. There is no evidence to suggest acute appendicitis. Urinary bladder is unremarkable. Prostate gland is enlarged. No ascites. Impression: Stable hepatic metastatic disease as well as stable probable hepatic cysts. Stable subcentimeter pulmonary nodules and right middle lobe scarring. Reviewed, dictated and finalized at [facility]. CARVER Impression: Stable hepatic metastatic disease as well as stable probable hepatic cysts. Stable subcentimeter pulmonary nodules and right middle lobe scarring.
[2023-03-05 13:03] LABS: Estimated Glomerular Filt Rate 50
== END 2023-03-05 12:45 | disposition home or self-care (01) ==
PROVIDERS: PCP Family Medicine; Visit Provider Nurse Practitioner Family
DX: C7A.8 Other malignant neuroendocrine tumors (principal); C7B.8 Other secondary neuroendocrine tumors; D3A.098 Benign carcinoid tumors of other sites
CPT/HCPCS: 71260; 74177; Q9967

== ENCOUNTER 2023-03-07 11:00 | Outpatient (CLI) | payer MEDICARE, SELFPAY ==
[2023-03-07 19:38] LABS: Alanine Aminotransferase 19 U/L (6-50); Albumin Level 3.4 g/dL (3.5-5.1); Alkaline Phosphatase 81 U/L (38-126); Anion Gap 8 mmol/L (8-16); Aspartate Amino Transferase 43 U/L (17-59); Blood Urea Nitrogen 23 mg/dL (9-20); Calcium 7.1 mg/dL (8.4-10.2); Carbon Dioxide 24 mmol/L (22-30); Chloride 107 mmol/L (98-107); Cholesterol 133 mg/dL (0-200); Estimated Glomerular Filt Rate 50; Glucose 72 mg/dL (65-110); HDL Direct 40 mg/dL; Potassium 3.1 mmol/L (3.4-5.0); Sodium 139 mmol/L (137-145); Triglycerides 112 mg/dL (<150)
[2023-03-07 19:41] LABS: Basophils Percent Auto 0.5 % (0.2-1.2); Eosinophils Absolute Auto 0.1 K/mm3 (0-0.3); Eosinophils Percent Auto 1.7 % (0-4.4); Hematocrit 32.1 % (42.0-52.0); Hemoglobin 10.4 g/dL (14.0-18.0); Immature Granulocyte Absolute 0.02 K/mm3 (0.00-0.031); Immature Granulocyte Percent A 0.3 % (0-0.5); Lymphocytes Absolute Auto 2.24 K/mm3 (0.9-3.2); Lymphocytes Percent Auto 38.7 % (18.3-44.2); Mean Corpuscular HGB Conc 32.4 g/dl (32-36); Mean Corpuscular Volume 95.5 fl (80-100); Mean Platelet Volume 11.1 fl (7.4-10.4); Monocytes Absolute Auto 0.8 K/mm3 (0.1-0.6); Neutrophils Absolute Auto 2.7 K/mm3 (1.3-6.7); Neutrophils Percent Auto 45.8 % (45.5-73.1); Platelet Count Result 161 k/mm3 (150-375); Red Blood Count 3.36 M/mm3 (4.6-6.20); White Blood Count 5.8 K/mm3 (4.5-10.0)
[2023-03-07 19:49] LABS: LDL Cholesterol Direct 74 mg/dL
[2023-03-07 19:53] LABS: Vitamin D 25 Hydroxy 25.6 ng/mL
[2023-03-07 20:08] LABS: Prostate Specific Antigen 2.9 ng/mL (< OR = 4.0)
== END 2023-03-07 11:01 | disposition home or self-care (01) ==
LOC: ANHGOSHLAB 11:02
PROVIDERS: PCP Family Medicine; Visit Provider Family Medicine
DX: E78.5 Hyperlipidemia, unspecified (principal); I10 Essential (primary) hypertension; Z12.5 Encounter for screening for malignant neoplasm of prostate; E53.8 Deficiency of other specified B group vitamins; D3A.012 Benign carcinoid tumor of the ileum; E55.9 Vitamin D deficiency, unspecified
CPT/HCPCS: 36415; 80053; 80061; 82306; 82607; 84153; 84443; 85025; G0103

== ENCOUNTER 2023-07-29 08:37 | Outpatient (CLI) | payer MEDICARE, SELFPAY ==
--- NOTE | ~2023-07-29 | XR_ITS ---
Supine and upright views of the abdomen Clinical history: Renal stones COMPARISON: 07/17/2022 Findings: Bowel gas pattern is nonspecific. No evidence for obstruction or free air. Stable probable 5 mm left lower pole renal stone. Stable suture line right lower quadrant. Cholecystectomy clips. Oss eous structures are intact. Impression: Stable suspected 5 mm left lower pole renal stone. Reviewed, dictated and finalized at location . Impression: Stable suspected 5 mm left lower pole renal stone.
== END 2023-07-29 08:38 | disposition home or self-care (01) ==
LOC: ANHIMG 08:41
PROVIDERS: PCP Family Medicine; Visit Provider Urology
DX: N20.0 Calculus of kidney (principal); Z87.442 Personal history of urinary calculi
CPT/HCPCS: 74018

== ENCOUNTER 2023-09-05 09:33 | Outpatient (CLI) | payer MEDICARE, SELFPAY ==
[2023-09-09 09:54] LABS: Kit Draw Collected
== END 2023-09-05 09:34 | disposition home or self-care (01) ==
LOC: ANHGOSHLAB 09:35
PROVIDERS: PCP Family Medicine; Visit Provider Family Medicine
DX: E83.51 Hypocalcemia (principal); I10 Essential (primary) hypertension
CPT/HCPCS: 36415